=== PATIENT | female | born 1950 | race Caucasian/White ===

== ENCOUNTER 2021-04-25 06:00 | Day surgery (SDC) | payer OTHER ==
[~2021-04-25 06:00] MED LIST: CRESTOR10 MG PO; DEXILANT60 MG PO; GLIPIZIDE XL5 MG PO; GLUCOTROL10 MG PO; JARDIANCE10 MG PO; JENTADUETO 2.51 EAC2 PO; LEXAPRO5 MG PO; LOSARTAN-HCTZ1 EACH PO; NEURONTIN300 MG PO; PROTONIX PO; RELION HUM100 UNIT/1 SQ; [UNRECOGNIZED DRUG - OTHER] PO
== END 2021-04-25 15:30 | disposition home or self-care (01) ==
LOC: CIR.AMB 06:00
PROVIDERS: ATTEND Orthopaedic Surgery Hand Surgery
DX: M65.321 Trigger finger, right index finger (principal); M65.331 Trigger finger, right middle finger; Z20.822 Contact with and (suspected) exposure to COVID-19